=== PATIENT | male | born 1990 | race Caucasian/White ===

== ENCOUNTER → 2016-12-24 | Outpatient (CLI) | payer OTHER ==
[~2016-12-24] MED LIST: ASPIR-LOW81 MG PO; PERCOCET 5-3251 EACH PO; PHENERGAN 12.12.5 M1 PO; STOOL SOFTENER250 MG PO
== END ==
LOC: US 08:30
DX: R74.8 Abnormal levels of other serum enzymes (principal); K76.0 Fatty (change of) liver, not elsewhere classified
CPT/HCPCS: 76700

== ENCOUNTER 2017-01-05 03:59 | Emergency (ER) | payer OTHER | END 2017-01-05 06:48 | disposition home or self-care (01) | LOC: ER1 03:59 | DX: K08.89 Other specified disorders of teeth and supporting structures (principal); I10 Essential (primary) hypertension; Z79.899 Other long term (current) drug therapy | CPT/HCPCS: 99282; J1885 ==

== ENCOUNTER → 2021-08-16 | Outpatient (CLI) | payer BC ==
[~2021-08-16] MED LIST changes: +LORTAB 7.5-3251 EACH PO
== END ==
LOC: KOH-I 10:14
DX: M25.561 Pain in right knee (principal)
CPT/HCPCS: 73564

== ENCOUNTER 2021-09-30 13:32 | Emergency (ER) | payer BC | END 2021-09-30 14:30 | disposition home or self-care (01) | LOC: ER1 13:32 | DX: M25.561 Pain in right knee (principal) | CPT/HCPCS: 29530; 99283 ==

== ENCOUNTER → 2021-10-14 | Outpatient (CLI) | payer BC, OTHER | LOC: KOH-I 13:40 | DX: S83.211A Bucket-handle tear of medial meniscus, current injury, right knee, initial encounter (principal); M25.461 Effusion, right knee | CPT/HCPCS: 73721 ==

== ENCOUNTER 2022-03-07 03:18 | Emergency (ER) | payer BC ==
[2022-03-07 03:50] LABS: HEMOGLOBIN 16.7 gm/dl (14.0-17.5); RED BLOOD COUNT 5.47 M/UL (4.20-5.50); WHITE BLOOD COUNT 8.2 K/UL (4.5-11.0)
[2022-03-07 04:44] LABS: BUN/CREATININE RATIO 12 (0-10)
[2022-03-07] MEDS ORDERED: BENZONATATE100 MG PO (04:52)
[2022-03-07] MEDS ORDERED: PROVENTIL HFA6.7 GM INH (04:52)
[2022-03-07] MEDS ORDERED: ZOFRAN ODT 4 MG4 MG PO (04:53)
== END 2022-03-07 05:06 | disposition home or self-care (01) ==
LOC: ER1 03:18
PROVIDERS: Physician Assistant
DX: R06.02 Shortness of breath (principal); R07.9 Chest pain, unspecified; R05.9 Cough, unspecified; Z90.89 Acquired absence of other organs; Z88.5 Allergy status to narcotic agent; Z51.81 Encounter for therapeutic drug level monitoring
CPT/HCPCS: 71045; 80053; 82550; 82553; 83880; 84484; 85025; 85379; 85610; 85730; 93005; 94640; 94664; 94760; 96374; 99285; J2930

== ENCOUNTER → 2022-04-18 | Outpatient (CLI) | payer BC ==
[~2022-04-18] MED LIST changes: +BENZONATATE100 MG PO; +PROVENTIL HFA6.7 GM INH; +ZOFRAN ODT 4 MG4 MG PO
== END ==
LOC: US 07:50
DX: R74.8 Abnormal levels of other serum enzymes (principal); K76.0 Fatty (change of) liver, not elsewhere classified
CPT/HCPCS: 76705